=== PATIENT | female | born 1975 | race Caucasian/White ===

== ENCOUNTER 2016-08-21 22:28 | Observation (INO) | payer OTHER | END 2016-08-22 05:10 | disposition short-term general hospital (02) | LOC: LDROP 22:28 → LAB 22:28 → LDRIP 22:45 → LDROP 22:45 → LDRIP 22:45 | PROVIDERS: ADMIT Family Medicine | DX: Z34.81 Encounter for supervision of other normal pregnancy, first trimester (principal); E28.2 Polycystic ovarian syndrome; Z90.49 Acquired absence of other specified parts of digestive tract; Z86.69 Personal history of other diseases of the nervous system and sense organs; Z79.899 Other long term (current) drug therapy; Z88.8 Allergy status to other drugs, medicaments and biological substances | CPT/HCPCS: G0378 ==